=== PATIENT | male | born 1960 | race Caucasian/White ===

== ENCOUNTER → 2017-09-01 | Outpatient (CLI) | payer OTHER ==
[~2017-09-01] MED LIST: ACETAMINOPHEN-1 EAC1 PO; KEFLEX500 MG PO; NOHOMEMEDICATIONS
== END ==
LOC: M.LAB 10:13
DX: R51 Headache (principal)

== ENCOUNTER → 2018-02-09 | Outpatient (CLI) | payer OTHER ==
--- NOTE | 2018-02-09 16:45 | EXE ---
[place] [address] STRESS ECHOCARDIOGRAM Name: STACIA CHRISTOPHER Room: [facility]#: [id number] Admission: 02/09/18 Attend Phys: Jack Beaulieu Discharge: Date of : 64 Date of Service: 02/09/18 1644 Report #: [id number] THIS REPORT FOR: //name// APPROVED REPORT Study performed: 02/09/2018 15:50:36 Exam: Stress Echocardiogram Indication: Chest pain , Dyspnea Patient Location: Out-Patient Stress Nurse: Lisette Alanis RN Supervising Physician: Kevin Estes MD Status: routine Ht: 6 ft 0 in HR: 80 bpm BP: 136/90 mmHg Procedure The patient underwent an Exercise Stress Test using the Adis Protocol. Blood pressure, heart rate, and EKG were monitored. An Echocardiogram was performed by medical office technician in four stages in quad fashion. At peak stress, four selected images were obtained and placed side by side with resting images for comparison. Stress Test Details Stress Test: Exercise stress testing was performed using a Adis protocol. HR Resting HR: 80 bpm Max Heart Rate (APMHR): 165 bpm Max HR Achieved: 160 bpm Target HR (85% APMHR): 140 bpm % of APMHR: 96 Recovery HR: 88 bpm HR response to stress: Normal HR response to stress BP Resting BP: 136/90 mmHg Max BP: 149/70 mmHg Recovery BP: 141/89 mmHg ECG Resting ECG: Sinus Rhythm, normal EKG Stress ECG: Sinus Tachycardia ST Change: Upsloping ST depression Maximum ST Deviation: 1 mm Arrhythmia: [place] [address] STRESS ECHOCARDIOGRAM Name: STACIA CHRISTOPHER Room: [facility]#: [id number] Admission: 02/09/18 Attend Phys: Jack Beaulieu Discharge: Date of : 64 Date of Service: 02/09/18 1644 Report #: [id number] Recovery ECG: Sinus Rhythm Recovery ST Change: None Recovery Arrhythmia: None Clinical Reason for Termination: Completed protocol, Maximal effort Exercise duration: 7 min 10 sec Highest Stage Achieved: Stage 3: 3.4 mph at 14% grade. Exercise capacity: 8.84 METs The patient had no significant symptoms with standard Adis protocol exercise stress. Exercise was discontinued due to dyspnea and fatigue. Stress ECG Conclusion The baseline 12-lead EKG show sinus rhythm with no significant ST or T wave abnormalities. EKGs obtained during stress show sinus tachycardia with [address] segment depression that was upsloping in nature and did not meet criteria for stress-induced ischemia. Recovery EKGs were unremarkable. Pre-Stress Echo The resting Echocardiogram showed normal left ventricular contractility with an estimated Ejection Fraction of about 55-60%. Post-Stress Echo The stress Echocardiogram showed normal left ventricular contractility with an estimated Ejection Fraction of about >70%. Clinical No clinical or ECG evidence for ischemia. Conclusion Clinical Response: Non-ischemic Exercise Capacity: Average Stress ECG Response: Non-ischemic Stress Echo Images: Non-ischemic The left ventricle is normal in size and wall thickness in both the rest and stress images. Other Information Study Quality: Good <Conclusion> [place] [address] STRESS ECHOCARDIOGRAM Name: STACIA CHRISTOPHER Room: [facility]#: [id number] Admission: 02/09/18 Attend Phys: Jack Beaulieu Discharge: Date of : 64 Date of Service: 02/09/181643 Report #: [id number] The left ventricle is normal in size and wall thickness in both the rest and stress images. <ELECTRONICALLY SIGNED> By: Jack Blackman MD, FACC 02/09/181643 43 43 Jack Blackman MD, FACC /INF
== END ==
LOC: M.CRD 14:30
DX: R07.89 Other chest pain (principal); R06.09 Other forms of dyspnea; R00.2 Palpitations; R06.02 Shortness of breath; R61 Generalized hyperhidrosis

== ENCOUNTER → 2018-02-25 | Outpatient (CLI) | payer OTHER | LOC: M.CT 09:07 | DX: R06.02 Shortness of breath (principal); R07.9 Chest pain, unspecified ==

== ENCOUNTER → 2019-09-02 | Outpatient (CLI) | payer BC ==
--- NOTE | 2019-09-02 14:06 | CARDNUC ---
[place] [address] CARDIAC NUCLEAR IMAGING REPORT Name: STACIA CHRISTOPHER Room: [facility]#: [id number] Admission: 09/02/19 Attend Phys: Jack Blackman, Discharge: Date of : 64 Date of Service: 09/02/19 1404 Report #: [id number] THIS REPORT FOR: cc: FAM - Family physician unknown FAM - Family physician unknown Jack Blackman MD [facility] ~ APPROVED REPORT Study performed: 09/02/2019 09:42:46 Exam: Nuclear Stress Test Indication: Chest pain, Dyspnea Patient Location: Out-Patient Stress Tech: Vera Michael Stress Nurse: Ayleen Cleary RN NM Tech:ALONDRA Kim Ht: 6 ft 0 in Wt: 201 lbs BSA: 2.14 m2 BMI: 27.25 Medical History Medical History: HTN Medications: lisinopril Allergies: No known drug allergies Cardiac Risk Factors: Age, FHX of CAD, HTN Exercise History: Physically active Stress Test Details Stress Test: Exercise stress testing was performed using a Adis protocol. HR Resting HR: 73 bpm Max Heart Rate (APMHR): 164 bpm Max HR Achieved: 167 bpm Target HR (85% APMHR): 139 bpm % of APMHR: 101 Recovery HR: 103 bpm HR response to stress: Normal HR response to stress BP Resting BP: 130/80 mmHg Max BP: 155/75 mmHg BP response to stress: Normal blood pressure response [place] [address] CARDIAC NUCLEAR IMAGING REPORT Name: CANDISTACIA Room: [facility]#: [id number] Admission: 09/02/19 Attend Phys: Jack Blackman, Discharge: Date of : 64 Date of Service: 09/02/19 1404 Report #: [id number] Resting ECG: Sinus Rhythm Stress ECG: Sinus Tachycardia ST Change: None Arrhythmia: None Recovery ECG: Sinus Rhythm Recovery ST Change: None Recovery Arrhythmia: None Clinical Reason for Termination: Leg pain/Claudication Exercise duration: 7 min 58 sec Exercise capacity: 10.08 METs Overall Exercise Capacity for Age: Superior Functional Aerobic Impairment 102% The patient tolerated standard Adis protocol exercise without significant symptoms. Stress ECG Conclusion The baseline 12-lead EKG shows sinus rhythm without significant ST segment or T wave abnormality. EKGs obtained during and post exercise showed sinus rhythm and sinus tachycardia with no significant ST segment or T wave changes when compared to baseline. There were no stress-induced arrhythmias. NM EXAM: Myocardial Perfusion REST/STRESS Imaging Protocol: Rest Tc-99m/Stress Tc-99m 1 day Resting Data Rest SPECT myocardial perfusion imaging was performed in supine position 30 minutes following the intravenous injection of 10.0 mCi of Tc-99m Sestamibi. Time of rest injection: 0800 Date: 09/02/2019 The images were gated to evaluate regional wall motion and calculate left ventricular ejection fraction. Administration Route: IV Administration Site: Right Hand Exercise Stress At peak stress, the patient was injected intravenously with 29.0mCi of Tc-99m Sestamibi. Time of stress injection: 0935 Date: 09/02/2019 Administration Route: IV Administration Site: Right Hand Gated Stress SPECT was performed 30 minutes after stress injection. The images were gated to evaluate regional [place] [address] CARDIAC NUCLEAR IMAGING REPORT Name: STACIA CHRISTOPHER Room: [facility]#: [id number] Admission: 09/02/19 Attend Phys: Jack Blackman, Discharge: Date of : 64 Date of Service: 09/02/19 1404 Report #: [id number] left ventricular ejection fraction. Prone imaging was performed. Study Quality Study: Good Artifact: Mild Diaphragmatic artifact Study Data At rest, the left ventricular ejection fraction was 64%.. Post stress, the left ventricular ejection was 70%.. TID = 0.92. Perfusion Perfusion images obtained in the supine position at rest and post exercise stress show mild photopenia in the mid to distal inferior wall that resolves completely with post stress prone imaging consistent with diaphragmatic attenuation artifact. No other significant defects were identified. Wall Motion Normal left ventricular wall motion. Nuclear Conclusion ECG Findings: negative for ischemia Clinical Findings: negative for ischemia Nuclear Findings: negative for ischemia Exercise Capacity: normal Left Ventricular Function: normal Risk Study: low Myocardial perfusion images show no defect to just infarct or ischemia. Left ventricular systolic function appears normal on gated studies area this is a low risk study. <Conclusion> The baseline 12-lead EKG shows sinus rhythm without significant ST segment or T wave abnormality. EKGs obtained during and post exercise showed sinus rhythm and sinus tachycardia with no significant ST segment or T wave changes when compared to baseline. There were no stress-induced arrhythmias. <ELECTRONICALLY SIGNED> By: Jack Blackman MD, FACC 09/02/19 1404 1404 1404 Jack Blackman MD, FACC /INF
== END ==
LOC: M.NUC 08-24 14:10
DX: R07.2 Precordial pain (principal); R00.0 Tachycardia, unspecified